=== PATIENT | female | born 1975 | race Caucasian/White ===

== ENCOUNTER 2017-02-17 10:37 | Emergency (ER) | payer BC, MEDICAID ==
[~2017-02-17] VITALS: Ht 160 cm; Wt 71.5 kg
[~2017-02-17 10:37] MED LIST: BENZ100C70 PO; CLOT15CR62 TOP; D-ME473S18 PO; IBUP-1542 PO; IBUP800T25 PO; NO MEDS; PHEN177S43 MT; PSEU30TA38 PO
[2017-02-17 10:46] VITALS: Ht 160 cm; Wt 71.5 kg
[2017-02-17] MEDS ORDERED: ACETAMINOPHEN 500 MG TAB PO STA (11:33)
[2017-02-17 12:13] LABS: ADD UMIC YES; UR BILIRUBIN (Dip) NEGATIVE (NEGATIVE); UR BLOOD (Dip) TRACE (NEGATIVE); UR CLARITY CLEAR (CLEAR); UR COLOR LT. YELLOW (YELLOW); UR GLUCOSE (Dip) NEGATIVE (NEGATIVE); UR KETONES (Dip) NEGATIVE (NEGATIVE); UR LEUKOCYTE ESTERASE (Dip) NEGATIVE (NEGATIVE); UR NITRITE (Dip) NEGATIVE (NEGATIVE); UR TOTAL PROTEIN (Dip) NEGATIVE (NEGATIVE); UR UROBILINOGEN (Dip) 0.2 E.U./dL (0.1-1.0)
[2017-02-17 12:19] LABS: ADD SCAN DIFF NO
[2017-02-17 12:23] LABS: BASOPHILS % 0.2 % (0.0-2.0); EOSINOPHILS # 0.1 10^3/ul (0.0-0.5); EOSINOPHILS % 0.8 % (0.0-7.0); HEMATOCRIT 36.1 % (37.0-47.0); HEMOGLOBIN 11.4 g/dl (12.0-16.0); LYMPHOCYTES # 1.5 10^3/ul (0.8-2.9); MEAN CORPUSCULAR HEMOGLOBIN 25.3 pg (29.0-33.0); MEAN CORPUSCULAR HGB CONC 31.6 g/dl (32.0-37.0); MEAN PLATELET VOLUME 12.1 fl (7.4-10.4); MONOCYTE # 0.5 10^3/ul (0.3-0.9); MONOCYTES % 7.8 % (0.0-11.0); NEUTROPHIL # 4.1 10^3/ul (1.6-7.5); PLATELET COUNT 189 10^3/UL (140-415); RED BLOOD COUNT 4.51 10^6/ul (4.20-5.40); RED CELL DISTRIBUTION WIDTH 15.2 % (11.5-14.5); WHITE BLOOD COUNT 6.2 10^3/ul (4.8-10.8)
[2017-02-17 12:36] LABS: ALBUMIN 4.7 g/dl (3.3-4.9); ALBUMIN/GLOBULIN RATIO 2.04; BILIRUBIN,INDIRECT 0.4 mg/dl (0-1.1); BILIRUBIN,TOTAL 0.4 mg/dl (0.2-1.3); CALCIUM 9.5 mg/dl (8.4-10.2); CREATININE 0.75 mg/dl (0.44-1.00); POTASSIUM 4.1 mmol/L (3.5-5.1)
[2017-02-17 12:57] LABS: UR PH (Dip) 5.5 (5.0-9.0); UR SPECIFIC GRAVITY (Dip) > 1.030 (1.003-1.030)
--- NOTE | 2017-02-17 14:02 | RADRPT ---
PROCEDURE: Ultrasound pelvis CLINICAL INDICATION: right pelvic pain TECHNIQUE: Multiple cain scale and color Doppler images of the pelvis were obtained transabdominal ly and transvaginally. Images were reviewed PACS workstation COMPARISON: None FINDINGS: The uterus is identified, measuring 10.0 x 5.2 x 6.5 cm. There are 2 cystic appearing areas in the myometrium, adjacent to the endometrium, measuring up to 7 mm. The endometrial canal appears within normal limits, measuring 8 mm in thickness. The right ovary measures 3.8 x 1.4 x 2.0 cm. The left ovary measures 2.4 x 1.4 x 1.7 cm. The ovari es appear unremarkable in echotexture. There is bilateral vascular flow identified. There is no evidence of free fluid. There is no abnormal adnexal mass. IMPRESSION: 1. No adnexal mass or free fluid. 2. 2 myometrial cysts, up to 7 mm. Adenomyosis is a possible etiology; MRI may be considered for e valuation as clinically warranted. RPTAT: DD .Kenneth Riojas MD, Date Time Electronically viewed and signed by .Kenneth Riojas MD, on 02/17/2017 14:01 .T/
[2017-02-17 14:26] LABS: UR ASCORBIC ACID NEGATIVE (NEGATIVE); UR MUCUS MANY /HPF (NONE SEEN); UR RBC 4 /HPF (0-5); UR SQUAMOUS EPITHELIAL CELL FEW /HPF (FEW)
[2017-02-17] MEDS ORDERED: ACET500C5 PO (14:27)
[2017-02-17] MEDS ORDERED: KETO5DRO58 OP (14:30)
--- NOTE | 2017-02-17 14:52 | ERD ---
ER Documentation Chief Complaint Date/Time DATE: 02/17/17 TIME: 14:37 Chief Complaint Pt with RLQ radiating to back X 3 days, R facial numbness and CAMARGO X 1 month. HPI 41-year-old female is complaining of right lower quadrant to right flank pain 3 days. Patient stated the pain is dull, and intermittent. Pain is worse when she is laying down. Denies fever or chills. Denies nausea, vomiting, or diarrhea. Denies dysuria. LMP 02/12/2017. Patient also complaining of headache comes and goes for the last 1 month. She has pulsating sensation behind her right eye. Patient reports clear to white discharge in the right eye in the mornings. She also has itching in her bilateral eyes. Denies change in vision. Denies photophobia. Denies eye trauma. Denies head or neck trauma. ROS All systems reviewed and are negative except as per history of present illness. Medications Home Meds Active Scripts Ketotifen Fumarate (ZADITOR) 5 Ml Drops, 1 DROP OP Q12 Y for ITCHING, #1 BOTTLE Prov:TAMEKA RUIZ. INDUSTRIAL SEWER 02/17/17 Acetaminophen* (Tylophen*) 500 Mg Capsule, 1 CAP PO Q6H Y for PAIN AND OR ELEVATED TEMP, #20 CAP Prov:TAMEKA RUIZ. INDUSTRIAL SEWER 02/17/17 Betamethasone-Clotrimazole* (Lotrisone*) 15 Gm Cr, 1 APPLIC TOP BID, #1 TUB Prov:TODD GOMEZ DO 05/10/16 Phenol* (Chloraseptic* Elbe) 177 Ml Elbe.pump, 2 SPRAY MT Q2H Y for SORE THROAT, #1 BOTTLE Prov:TODD GOMEZ DO 05/10/16 Dextromethorphan Hb-Promethazine Hcl (Promethazine DM Syrup) 473 Ml Syrup, 5 ML PO Q6H Y for COUGH, #4 OZ Prov:TODD GOMEZ DO 05/10/16 Ibuprofen* (Motrin*) 600 Mg Tab, 600 MG PO Q6H Y for PAIN AND OR ELEVATED TEMP, #30 TAB Prov:FLORESITA CHAND PA-C 08/07/15 Pseudoephedrine Hcl* (Pseudoephedrine Hcl*) 30 Mg Tablet, 30 MG PO Q6 Y for CONGESTION, #30 TAB Prov:FLORESITA CHAND PA-C 08/07/15 Ibuprofen* (Motrin*) 800 Mg Tab, 800 MG PO Q6H Y for PAIN AND OR ELEVATED TEMP, #30 TAB Prov:FLORESITA CHAND PA-C 08/07/15 Benzonatate* (Tessalon Perle*) 100 Mg Capsule, 200 MG PO TID Y for COUGH, #30 CAP Prov:FLORESITA CHAND PA-C 08/07/15 Reported Medications [No Meds] No Conflict Check 08/08/10 Allergies Allergies: Coded Allergies: fluoxetine (Verified Allergy, Severe, 05/10/16) PMhx/Soc History of Surgery: No Anesthesia Reaction: No Hx Neurological Disorder: No Hx Respiratory Disorders: No Hx Cardiac Disorders: No Hx Psychiatric Problems: No Hx Miscellaneous Medical Probl: No Hx Alcohol Use: No Hx Substance Use: No Hx Tobacco Use: No Smoking Status: Never smoker Physical Exam Vitals Vital Signs Date Time Temp Pulse Resp B/P Pulse Ox O2 Delivery O2 Flow Rate FiO2 02/17/17 10:46 99.1 77 18 109/62 97 Physical Exam General: Well-developed, well-nourished, conscious and coherent, in no distress Skin: Warm and dry without rash, good texture and turgor Head: Normocephalic without evidence of trauma Eyes: Sclera and conjunctivae normal; pupils equal, round, and reactive to light; extraocular movements are intact Neck: Supple without meningismus or adenopathy. Carotids are equal. Trachea midline. No bruits or JVD Chest: Normal AP diameter. Good expansion without retractions. Nontender. Lungs are clear to auscultate bilaterally with good tidal volume Heart: Regular rate and rhythm. No murmur, rub, or gallops heard Abdomen: Soft, mild diffuse tenderness on the right lower quadrant without masses, guarding, or rebound. Bowel sounds are active. No hepatosplenomegaly Back: Without spinal or CVA tenderness Pelvis: Mild, diffuse tenderness. Extremities: Full range of motion. Good strength bilaterally. No clubbing, cyanosis, or edema. Peripheral pulses are intact. Sensation intact Neuro: Alert and oriented 4, GCS 15. Cranial nerves grossly intact. Motor and sensory exams nonfocal. Moves all extremities. Speech clear. Gait normal Result Diagram: 02/17/17 1205 02/17/17 1205 Results 24 hrs Laboratory Tests Test 02/17/17 12:00 02/17/17 12:05 Urine Color LT. YELLOW Urine Clarity CLEAR Urine pH 5.5 Urine Specific Delmar > 1.030 Urine Ketones NEGATIVE Urine Nitrite NEGATIVE Urine Bilirubin NEGATIVE Urine Urobilinogen 0.2 E.U./dL Urine Leukocyte Esterase NEGATIVE Urine Microscopic RBC 4/HPF Urine Microscopic WBC 3/HPF Urine Squamous Epithelial Cells FEW/HPF Urine Mucus MANY/HPF Urine Hemoglobin TRACE Urine Glucose NEGATIVE% Urine Total Protein NEGATIVE White Blood Count 6.210^3/ul Red Blood Count 4.5110^6/ul Hemoglobin 11.4g/dl Hematocrit 36.1% Mean Corpuscular Volume 80.0fl Mean Corpuscular Hemoglobin 25.3pg Mean Corpuscular Hemoglobin Concent 31.6g/dl Red Cell Distribution Width 15.2% Platelet Count 98864^3/UL Mean Platelet Volume 12.1fl Neutrophils % 66.0% Lymphocytes % 25.0% Monocytes % 7.8% Eosinophils % 0.8% Basophils % 0.2% Nucleated Red Blood Cells % 0.0/100WBC Neutrophils # 4.110^3/ul Lymphocytes # 1.510^3/ul Monocytes # 0.510^3/ul Eosinophils # 0.110^3/ul Basophils # 0.010^3/ul Nucleated Red Blood Cells # 0.010^3/ul Sodium Level 139mmol/L Potassium Level 4.1mmol/L Chloride Level 105mmol/L Carbon Dioxide Level 26mmol/L Anion Gap 12 Blood Urea Nitrogen 10mg/dl Creatinine 0.75mg/dl Glucose Level 85mg/dl Calcium Level 9.5mg/dl Total Bilirubin 0.4mg/dl Direct Bilirubin 0.00mg/dl Indirect Bilirubin 0.4mg/dl Aspartate Amino Transf (AST/SGOT) 18IU/L Alanine Aminotransferase (ALT/SGPT) 32IU/L Alkaline Phosphatase 47IU/L Total Protein 7.0g/dl Albumin 4.7g/dl Globulin 2.30g/dl Albumin/Globulin Ratio 2.04 Lipase 64U/L Current Medications Medications (Trade) Dose Ordered Sig/Jeanne Route PRN Reason Start Time Stop Time Status Last Admin Dose Admin Acetaminophen (Tylenol Tab) 500 mg ONCE STAT PO 02/17/17 11:33 6/20/17 11:34 DC 02/17/17 11:54 PROCEDURE: Ultrasound pelvis CLINICAL INDICATION: right pelvic pain TECHNIQUE: Multiple cain scale and color Doppler images of the pelvis were obtained transabdominally and transvaginally. Images were reviewed PACS workstation COMPARISON: None FINDINGS: The uterus is identified, measuring 10.0 x 5.2 x 6.5 cm. There are 2 cystic appearing areas in the myometrium, adjacent to the endometrium, measuring up to 7 mm. The endometrial canal appears within normal limits, measuring 8 mm in thickness. The right ovary measures 3.8 x 1.4 x 2.0 cm. The left ovary measures 2.4 x 1.4 x 1.7 cm. The ovaries appear unremarkable in echotexture. There is bilateral vascular flow identified. There is no evidence of free fluid. There is no abnormal adnexal mass. IMPRESSION: 1. No adnexal mass or free fluid. 2. 2 myometrial cysts, up to 7 mm. Adenomyosis is a possible etiology; MRI may be considered for evaluation as clinically warranted. RPTAT: DD .Kenneth Riojas MD, MD Date Time Electronically viewed and signed by .Kenneth Riojas MD, on 02/17/2017 14:01 .T/ CC: TAMEKA RUIZ. INDUSTRIAL SEWER Procedures/MDM Well-appearing 41-year-old female presented ED was no specific right lower quadrant to right flank pain 3 days. CBC, CMP, and lipase are unremarkable UA is negative for urinary tract infection. Pelvic ultrasound was obtained, which showed 2 myometrial cysts with adenomyosis as a possible etiology. Low suspicion for acute appendicitis, cholecystitis, pancreatitis, bowel obstruction , or other acute abdomen. Patient also reports intermittent headache for last month. Patient does not have a headache at this time. Patient has no neurological deficits. Low suspicion for stroke, intracranial bleeding, or intracranial mass. Patient also complaining of itchy and watery eyes, likely allergic conjunctivitis. No sign of bacterial conjunctivitis, periorbital or orbital cellulitis. Patient appears well, stable for discharge and outpatient management. Medical decision making shared with patient and family. Education provided to patient and family. Patient and family expressed understanding of the plan. Medications on discharge: Tylenol, Zaditor. Follow-up: Primary care provider in 2-3 days or return to ED if worse. Departure Diagnosis: Primary Impression: Pelvic pain Additional Impressions: Allergic conjunctivitis Headache Condition: Stable Patient Instructions: Self-Care for Headaches, Pelvic Pain, Unknown Cause, Conjunctivitis, Allergic (Child) [facility]errals[facility] Usted se camargo hecho un examen mdico de control que le indica que no est en rey condicin que requiera tratamiento urgente en el Departamento de Emergencia. Un estudio ms profundo y el tratamiento de arboleda condicin pueden esperar sin ningn riesgo hasta que usted sea atendida/o en el consultorio de arboleda mdico o rey cl flor. Es responsabilidad suya arreglar rey mahendra para el seguimiento del khushbu. MANEJO DE CONDICIONES NO URGENTES EN EL FUTURO 1) Si usted tiene un mdico de atencin primaria: Usted debera llamar a arboleda mdico de atencin primaria antes de venir al departamento de emergencia. Despus de las horas de consultorio, arboleda doctor o arboleda asociado/a est disponible por telfono. El mdico o enfermero de jung en el servicio telefnico puede asesorarle por burton medio para atender el problema, o khushbu contrario se puede programar rey mahendra. 2) Si usted no tiene un mdico de atencin primaria: Llame al mdico o clnica de referencia que aparece abajo roxanne las horas de consultorio para hacer rey mahendra para que le vean. CLINICAS: [facility] [phone] [id number] [facility] 734 [phone] [address] [facility] 825 [phone] [facility] [phone] [facility] 732 [phone] [address] [facility]. [phone] [address] Additional Instructions: Llame al doctor MAANA y carl rey MAHENDRA PARA DENTRO DE 2-3 LEYVA.Dgale a la secretaria que nosotros le instruimos hacer esta mahendra.Avise o llame si arboleda condicin se empeora antes de la mahendra. Regresa aqui si peor o no mejor. TAMEKA RUIZ. AUDREY Feb 17, 2017 14:47
== END 2017-02-17 14:36 | disposition home or self-care (01) ==
LOC: FTE 10:37
DX: R10.2 Pelvic and perineal pain (principal); H10.45 Other chronic allergic conjunctivitis; R51 Headache
CPT/HCPCS: 36415; 76830; 76856; 80053; 81001; 83690; 85025